=== PATIENT | female | born 2000 | race Hispanic/Latino ===

== ENCOUNTER 2022-08-04 13:44 | Emergency (ER) | payer MEDICAID ==
[~2022-08-04] VITALS: Ht 154.9 cm; Wt 64.0 kg
[2022-08-04 17:36] VITALS: BP 105/53
== END 2022-08-04 19:52 | disposition home or self-care (01) ==
LOC: ED 13:44
DX: O26.899 Other specified pregnancy related conditions, unspecified trimester (principal); T65.891A Toxic effect of other specified substances, accidental (unintentional), initial encounter; R06.02 Shortness of breath; Z3A.00 Weeks of gestation of pregnancy not specified

== ENCOUNTER 2023-04-23 11:37 | Emergency (ER) | payer SELFPAY ==
[~2023-04-23] VITALS: Ht 154.9 cm; Wt 70.4 kg
[2023-04-23 13:33] LABS: URINE BILIRUBIN - DIPSTICK Negative (NEGATIVE); URINE BLOOD DIPSTICK Trace-intact (NEGATIVE); URINE GLUCOSE - DIPSTICK Negative (NEGATIVE); URINE KETONE Negative (NEGATIVE); URINE LEUK ESTERASE Negative (NEGATIVE); URINE NITRITE - DIPSTICK Negative (Negative); URINE PH 7.5 (4.5-8.0); URINE PROTEIN - DIPSTICK Negative (NEG-TRACE); URINE UROBILINOGEN - DIPSTICK 0.2 E.U./dL (0.2)
[2023-04-23 13:34] LABS: URINE COLOR Yellow
[2023-04-23 15:12] VITALS: BP 102/82
== END 2023-04-23 15:00 | disposition home or self-care (01) | DRG 392 ==
LOC: ED 11:37
PROVIDERS: Nurse Practitioner
DX: R11.0 Nausea (principal); Z20.822 Contact with and (suspected) exposure to COVID-19